=== PATIENT | male | born 1940 | race Hispanic/Latino ===

== ENCOUNTER → 2019-05-29 | Outpatient (CLI) | payer OTHER ==
[~2019-05-29] MED LIST: ACET-2743 PO; AMIO200T5 PO; ASPI-555 PO; BIMA12.5OS OU; DEXL60CA3 PO; DONE10TA43 PO; FERR325T22 PO; FURO40TA5 PO; GABA-529 PO; LISI-617 PO; LISI10TA7 PO; MEMA14CA PO; METF-444 PO; METO25TA6 PO; MIRA50TA PO; ROSU20TA23 PO; SITA100T12 PO
== END | disposition home or self-care (01) ==
LOC: RAH 10:17
PROVIDERS: ATTEND Neurological Surgery
DX: M47.816 Spondylosis without myelopathy or radiculopathy, lumbar region (principal); M48.062 Spinal stenosis, lumbar region with neurogenic claudication; M25.78 Osteophyte, vertebrae
CPT/HCPCS: 72148